=== PATIENT | female | born 1945 | race Caucasian/White ===

== ENCOUNTER 2021-12-15 09:18 | Day surgery (SDC) | payer MEDICARE ==
[2021-12-11 11:26] VITALS: BMI 25.8
[~2021-12-15 09:18] MED LIST: ALPRAZolam 0.25 MG TAB PO PRN; ALPRAZolam 0.5 MG TAB PO PRN; ASPIRIN 325 MG TAB PO PRN; HEPARIN SODIUM,PORCINE 10,000 UNIT in SODIUM CHLORIDE 0.9% 1,000 ML IRRIGATION PRN; HEPARIN SODIUM,PORCINE 2,500 UNIT in SODIUM CHLORIDE 0.9% 250 ML IRRIGATION PRN; SODIUM CHLORIDE 0.9% 1,000 ML in EMPTY BAG 1 BAG IV ONE; ZOLPIDEM 5 MG TAB PO PRN
[2021-12-15] MEDS ORDERED: SODIUM CHLORIDE 0.9% 1,000 ML IV ONE (09:50)
[2021-12-15 09:54] LABS: Basophils # (A) 0.1 k/uL (0-0.2); Basophils % (A) 1 %; Eosinophils # (A) 0.5 k/uL (0-0.7); Eosinophils % (A) 10 %; HCT 42.3 % (34.0-46.0); HGB 13.6 gm/dL (11.4-16.0); Hypochromasia Slight; Lymphocytes # (A) 2.1 k/uL (1.0-4.8); Lymphocytes % (A) 37 %; MCH 27.6 pg (25.0-35.0); MCHC 32.1 g/dL (31.0-37.0); MCV 85.9 fL (80.0-100.0); Mean Platelet Volume 7.5; Monocytes # (A) 0.4 k/uL (0-1.0); Monocytes % (A) 7 %; Neutrophils # (A) 2.3 k/uL (1.3-7.7); Neutrophils % (A) 42 %; Platelet Count 477 k/uL (150-450); RBC 4.92 m/uL (3.80-5.40); RDW 13.1 % (11.5-15.5); WBC 5.5 k/uL (3.8-10.6)
[2021-12-15 10:08] LABS: Calcium 10.1 mg/dL (8.4-10.2)
[2021-12-15] MEDS: MIDAZOLAM 2 MG/2 ML VIAL IV ONE ×2 (11:29→11:37)
[2021-12-15] MEDS ORDERED: LIDOCAINE 1% INJ 10MG/ML (30 ML VIAL-PF) SQ ONE (11:35)
[2021-12-15] MEDS ORDERED: HEPARIN SODIUM 1,000 UN/ML (10ML VL) ONE (11:44)
[2021-12-15] MEDS: HEPARIN SODIUM 1,000 UN/ML (10ML VL) IV ONE ×3 (11:45→12:07)
[2021-12-15] MEDS ORDERED: fentaNYL (PF) 50 MCG/ML 2 ML AMP ONE (12:08)
[2021-12-15] MEDS ORDERED: fentaNYL (PF) 50 MCG/ML 2 ML AMP IV ONE (12:09)
[2021-12-15] MEDS ORDERED: IOPAMIDOL-250 50ML BTL INTRAARTER ONE (12:32)
[2021-12-15] MEDS ORDERED: FLUTICASONE 50MCG/SPRAY NASAL 16GM EA NOSTRIL PRN (12:36)
[2021-12-15] MEDS ORDERED: SUCRALFATE 1 GM TAB PO PRN (12:36)
[2021-12-15] MEDS ORDERED: NALOXONE 0.4 MG/ML 1 ML VIAL IVP PRN (12:37)
[2021-12-15] MEDS ORDERED: CLOPIDOGREL 75 MG TAB ONE (12:37)
[2021-12-15] MEDS ORDERED: CLOPIDOGREL 75 MG TAB PO ONE (12:41)
--- NOTE | 2021-12-15 12:43 | P.PCN ---
Date of Procedure: 12/15/21 Operative Findings: PERCUTANEOUS PERIPHERAL INTERVENTION Performing physician Bimal Briones M.D. Procedure performed #1 successful stenting of the right and left common iliac arteries using 8.0 x 59 mm on the right and 8.0 x 57 mm on the left balloon expandable stents in a kissing technique #2 intravascular ultrasound of the aorta and right and left common iliac arteries and external iliac artery #3 balloon angioplasty of the right common iliac artery using the shock wave balloon #4 selective bilateral common iliacs and external iliacs angiogram #5 selective bilateral common femoral arteries angiogram #6 ultrasound-guided access of the right and left common femoral arteries Indication Severe bilateral lower extremities intermittent claudication in this 76-year-old female patient who underwent an angiogram and that revealed occluded right iliac and severe disease involving the left common iliac and also severe disease involving the right SFA Approach Right and left common femoral artery Complications None Level of sedation Moderate with a sedation time of 63 minutes Procedure description After obtaining an informed consent the patient was brought to the senior laboratory technician. The right and left common femoral arteries were cannulated using micropuncture technique under ultrasound guidance, the micropuncture wire passed easily then I placed a 6-Urdu sheath at the right and left common femoral arteries and both sheath were 23 cm bright tip sheath. That was performed under fluoroscopy guidance with adjunctive use off ultrasound. After that I did across the lesion of the right common iliac artery using 035 wire. Subsequently I did exchange my wire into a 14 wire. I did also cross the lesion at the left common iliac artery using 014 wire. I left a 2014 wires in both common iliac arteries. I did intravascular ultrasound of both and that showed a diameter about 8 mm. I did balloon angioplasty of the right iliac using the shock with balloon which was 8 mm balloon. After that I did kissing stents of the right and left common iliac artery using 8 mm x 59 mm on the right and 8 mm x 57 mm on the left. Both stents were positioned under fluoroscopy guidance in a kissing technique and deployed in a kissing technique with a good angiographic results by the end. The procedure was completed without any complications Postprocedure management #1 dual antiplatelet therapy #2 aggressive cholesterol control #3 risk factors modification #4 follow-up with the patient
[2021-12-15] MEDS ORDERED: SODIUM CHLORIDE 0.9% 1,000 ML in EMPTY BAG 1 BAG IV SCH (12:45)
[2021-12-15] MEDS: HYDROcodone/APAP 5-325MG 1 EACH TAB PO PRN ×2 (13:14→21:06)
--- NOTE | 2021-12-15 13:15 | IR ---
Fluoroscopy HISTORY: Pain in bilateral legs 12 minutes fluoroscopy time supplied to the referring clinician. 317 intraoperative C-arm images doc ument the procedure. See dictated report from cardiology.
[2021-12-15] MEDS ORDERED: HYDROmorphone 1 MG/ML 1 ML SYRINGE ONE (15:42)
[2021-12-15] MEDS ORDERED: NICOTINE 21MG/24HR PATCH TRANSDERM STA (16:31)
[2021-12-16] MEDS ORDERED: PANTOPRAZOLE 40 MG TABLET PO SCH (07:30)
[2021-12-16 08:44] LABS: Basophils % (A) 1 %; Eosinophils # (A) 0.3 k/uL (0-0.7); Eosinophils % (A) 6 %; HCT 37.9 % (34.0-46.0); HGB 12.2 gm/dL (11.4-16.0); Lymphocytes # (A) 1.1 k/uL (1.0-4.8); Lymphocytes % (A) 18 %; MCH 27.5 pg (25.0-35.0); MCHC 32.1 g/dL (31.0-37.0); MCV 85.5 fL (80.0-100.0); Mean Platelet Volume 7.8; Monocytes # (A) 0.3 k/uL (0-1.0); Monocytes % (A) 5 %; Neutrophils # (A) 4.1 k/uL (1.3-7.7); Neutrophils % (A) 68 %; Platelet Count 409 k/uL (150-450); RBC 4.43 m/uL (3.80-5.40); RDW 13.5 % (11.5-15.5); WBC 6.1 k/uL (3.8-10.6)
[2021-12-16] MEDS: HYDROcodone/APAP 5-325MG 1 EACH TAB PO PRN (08:48)
[2021-12-16] MEDS ORDERED: FENOFIBRATE 160 MG TAB PO SCH (09:00)
[2021-12-16] MEDS ORDERED: CLOPIDOGREL 75 MG TAB PO SCH (09:00)
[2021-12-16] MEDS ORDERED: amLODIPine 10 MG TAB PO SCH (09:00)
[2021-12-16] MEDS ORDERED: VIT A,C & E-LUTEIN-MINERALS 1 EACH TAB PO SCH (09:00)
[2021-12-16] MEDS ORDERED: LOSARTAN-HCTZ 50-12.5 MG 1 EACH TAB PO SCH (09:00)
[2021-12-16] MEDS ORDERED: DULoxetine HCL 30 MG CAPSULE.DR PO SCH (09:00)
[2021-12-16 09:05] LABS: Calcium 9.5 mg/dL (8.4-10.2); Potassium 3.9 mmol/L (3.5-5.1)
[2021-12-16 10:25] VITALS: RESP 18; TEMP 99.5
--- NOTE | 2021-12-16 10:28 | P.DS ---
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 She was seen this morning. The right and left groins are soft an nontender and without any bruises. The patient is going to be discharged home on dual antiplatelet therapy as well as high intensity statin and I'll follow-up with the patient in a week in the office Plan - Discharge Summary Discharge Rx Participant: Yes New Discharge Prescriptions: New Clopidogrel [Plavix] 75 mg PO DAILY #90 tab Aspirin 325 mg PO DAILY #90 tab Atorvastatin Calcium [Lipitor] 80 mg PO DAILY #90 tab Continue Fluticasone Nasal [place] [Flonase Nasal [place]] 1 spray EA NOSTRIL BID PRN PRN Reason: Runny Nose Sucralfate [Carafate] 1 gm PO QID PRN PRN Reason: Stomach problems Losartan/Hydrochlorothiazide [Losartan-Hctz 100-25 mg Tab] 1 tab PO DAILY HYDROcodone/APAP 5-325MG [[place] 5-325] 1 tab PO Q4-6H PRN PRN Reason: Pain Fenofibrate 160 mg PO DAILY DULoxetine HCL [Cymbalta] 30 mg PO DAILY amLODIPine BESYLATE 10 mg PO DAILY Vit C/E/Zn/Coppr/Lutein/Zeaxan [Preservision Areds 2 Softgel] 2 each PO DAILY Pantoprazole Sodium 40 mg PO DAILY Albuterol Inhaler [Ventolin Hfa Inhaler] 1 - 2 puff INHALATION Q6H PRN PRN Reason: Shortness Of Breath Discharge Medication List Albuterol Inhaler [Ventolin Hfa Inhaler] 1 - 2 puff INHALATION Q6H PRN 12/11/21 [History] DULoxetine HCL [Cymbalta] 30 mg PO DAILY 12/11/21 [History] Fenofibrate 160 mg PO DAILY 12/11/21 [History] Fluticasone Nasal [place] [Flonase Nasal [place]] 1 spray EA NOSTRIL BID PRN 12/11/21 [History] HYDROcodone/APAP 5-325MG [[place] 5-325] 1 tab PO Q4-6H PRN 12/11/21 [History] Losartan/Hydrochlorothiazide [Losartan-Hctz 100-25 mg Tab] 1 tab PO DAILY 12/11/21 [History] Pantoprazole Sodium 40 mg PO DAILY 12/11/21 [History] Sucralfate [Carafate] 1 gm PO QID PRN 12/11/21 [History] Vit C/E/Zn/Coppr/Lutein/Zeaxan [Preservision Areds 2 Softgel] 2 each PO DAILY 12/11/21 [History] amLODIPine BESYLATE 10 mg PO DAILY 12/11/21 [History] Aspirin 325 mg PO DAILY #90 tab 12/16/21 [Rx] Atorvastatin Calcium [Lipitor] 80 mg PO DAILY #90 tab 12/16/21 [Rx] Clopidogrel [Plavix] 75 mg PO DAILY #90 tab 12/16/21 [Rx] Follow up Appointment(s)/Referral(s): Bimal Briones MD [STAFF PHYSICIAN] - 1 Week (THE OFFICE WILL CALL YOU WITH AN APPOINTMENT DATE AND TIME AT [facility]) Patient Instructions/Handouts: *Surgery [facility] - After Heart Catheterization - [employer] Equipment [employer]ic Instructions, Peripheral Artery Disease (ED), Moderate Sedation (ED) Activity/Diet/Wound Care/Special Instructions: *NO LIFTING, PUSHING, OR PULLING ANYTHING OVER 5 POUNDS FOR 5 DAYS *NO DRIVING FOR 3 DAYS *YOU CAN REMOVE YOUR DRESSING AND SHOWER TOMORROW BUT DO NOT SUBMERSE YOUR PUNCTURE SITE IN WATER FOR A FEW DAYS TO PREVENT INFECTION - SO NO TUB BATHS, POOLSM, HOT TUBS, DISHES...ETC *ANY SIGNS OF BLEEDING (HARDNESS, SWELLING, OR EXCESSIVE BRUISING) HOLD DIRECT PRESSURE ON YOUR PUNCTURE SITE AND COME TO THE NEAREST EMERGENCY ROOM TO GET YOUR PUNCTURE SITE LOOKED AT - DO NOT DRIVE YOURSELF! EITHER CALL EMS OR HAVE SOMEONE DRIVE YOU!
[2021-12-16 14:14] VITALS: BP 120/74; PULSE 94
== END 2021-12-16 14:22 | disposition home or self-care (01) ==
LOC: CATHCVL 09:18 → 3SCARD 12:31 → CATHCVL 12-16 14:22
PROVIDERS: ATTEND Internal Medicine Interventional Cardiology
DX: I70.213 Atherosclerosis of native arteries of extremities with intermittent claudication, bilateral legs (principal); E78.5 Hyperlipidemia, unspecified; I10 Essential (primary) hypertension
CPT/HCPCS: 37221; 37252; 80048 ×2; 85025 ×2; 99152; C9765; S4990; J2250; J2001; J3010; J1644; J1170; Q9966